=== PATIENT | female | born 1935 | race Caucasian/White ===

== ENCOUNTER 2016-12-11 21:54 | Inpatient (IN) | payer OTHER ==
--- NOTE | ~2016-12-11 | IDS ---
Interim Discharge Summary [facility] [address] [place]. [address] NAME: BERTHA HAND : 37 STATUS : ADM IN [facility]#: [id number] AGE: 81 ADM/REG DATE : 12/11/16 MR#: [id number] REPORT SERV DATE: 12/17/16 DICTATED BY: CHICHI VAZQUEZ DATE: 12/17/16 REPORT STATUS : Draft TRANSCRIBED BY: MODL DATE: 12/17/16 ADMISSION DATE: 12/11/2016 DISCHARGE DATE: CURRENT HOSPITAL DIAGNOSES: 1. Significant hemoptysis with respiratory insufficiency. 2. Chronic obstructive pulmonary disease. 3. Hypertension. 4. Chronic kidney disease. 5. Hypothyroidism. CONSULTATIONS: Pulmonary Critical Care. PROCEDURES: 1. Intubation. 2. CT scan of the chest done on 12/11/2016, showing opacification of the left lower lobe bronchi, concerning for bronchial malignancy, recommend bronchoscopy in consultation with Interventional Pulmonology, debris within the right mainstem bronchus likely hemorrhagic. 3. Repeat CT of the chest on 12/17/2016, showing bibasilar consolidation, there is a minimal infiltrate in both upper lobes and lingula consistent with pneumonia, bilateral pleural fluid left greater than right. Previously reported opacity in the left lower lobe bronchi have cleared, pacemaker and minimal mediastinal lymph node prominence, stable and nonspecific. 4. Thoracic aortogram on 12/12/2016. 5. Echocardiogram done on 12/12/2016, showing normal LV systolic function, EF 60% to 65%, normal right ventricular chamber size, and systolic function. No significant valvular regurgitation or stenosis. CURRENT PHYSICAL FINDINGS AND HISTORY OF PRESENT ILLNESS: please see dictated H and P by Dr. Justice. In brief, the patient is an 81-year-old female, who had a bout of bronchitis several weeks prior to presentation, presented with acute hemoptysis and respiratory distress. Vital signs at time of admission, BP was 175/77, temperature was 97.8. No fever has been documented here. LABORATORY DATA: Initial lab work showed a creatinine of 1.81, which was slightly higher than her baseline of approximately 1.4, most recent creatinine is on 12/16/2016 at 1.61. Initial troponin was negative. Initial white count was 6.7. She did get as high as 19.5 on 12/13/2016, it is been sequentially decreasing. Presenting hemoglobin was 12.0, last hemoglobin was on 12/15/2016 and 12/16/2016 were 8.5 and 8.4. Strep was negative. Legionella was negative. Urinalysis was negative. Cultures thus far are negative. HOSPITAL COURSE: The patient was initially admitted to the floor. She was accepted as transfer from [facility] for bronchoscopy in the morning with Dr. Sanders. Shortly after admission, she became hypoxic, was intubated, and had to be transferred to the ICU. She was started on cefepime and underwent interventional procedures as listed above. She was Interim Discharge Summary [id number] [place]. [address] NAME: BERTHA HAND : 37 STATUS : ADM IN [facility]#: [id number] AGE: 81 ADM/REG DATE : 12/11/16 MR#: [id number] REPORT SERV DATE: 12/17/16 DICTATED BY: CHICHI VAZQUEZ DATE: 12/17/16 REPORT STATUS : Draft TRANSCRIBED BY: MODL DATE: 12/17/16 stabilized and was able to transfer to the floor on 12/14/2016, I saw her on 12/15/2016, she was titrating off her O2. She was having scant hemoptysis. Her breathing and her O2 requirements were stable. She continued on her antibiotics. On 12/16/2016, her Lasix and Tenormin were reinstitute, however, Tenormin was at a lower dose given her relative hypotension. Repeat CT scan was ordered and the results are as noted above. Her West was discontinued and she was able to completely stop her oxygen, ambulate in the room without assistance. She was still concerned about the possible etiology, and recurrence of her hemoptysis, any further evaluation which would need to be done, and whether she would need to discharge on antibiotics or not. Therefore, Pulmonary was consulted and will see her in the morning for further recommendations. She is currently clinically stable. TLF/MODL Chichi Vazquez M.D. / [id number] CC: Bj Adams,VIDHYA Mancia
--- NOTE | ~2016-12-11 | OP ---
Record Of Operation [facility] [address] [place]. [address] NAME: BERTHA HAND : 37 STATUS : ADM IN [facility]#: [id number] AGE: 81 ADM/REG DATE : 12/11/16 MR#: [id number] REPORT SERV DATE: 12/12/16 DICTATED BY: GERARDO FRIEND IV DATE: 12/12/16 REPORT STATUS : Draft TRANSCRIBED BY: RACQUEL DATE: 12/12/16 DATE OF PROCEDURE: 12/12/2016 LARYNGOSCOPIC INTUBATION NOTE PREOPERATIVE DIAGNOSIS: Hypoxemic respiratory failure despite non-rebreather. POSTOPERATIVE DIAGNOSIS: Hypoxemic respiratory failure despite non-rebreather. PROCEDURE: Laryngoscopic intubation with ventilator setup and placement of an orogastric tube. INDICATIONS: Acute hypoxemic respiratory failure with white-out of the left hemithorax. CONTRAINDICATIONS: None. CONSENT: I did discuss whether the patient wished to proceed with an intubation, which she agreed. No formal consent was obtained as a lifesaving procedure, and the patient is a full code. PREOPERATIVE LABS: The patient's INR is 1, PTT is 24.9, platelet count was 171,000. BONE CHAR KILN TENDER: Gerardo Friend M.D. METHOD: The patient was brought to the head of the bed. She was given 20 mg of etomidate IV times single dose. During this period of time, she was Ambu bag ventilated. Oxygen saturations remained in the high 80% range. Using a curved laryngoscopic blade, the vocal cords were easily visualized. A #7.5 Endotracheal tube was advanced through the vocal cords without difficulty. There was appropriate color change on the CO2 indicator and the bilateral breath sounds were better on the right. The tube was secured to 22 cm. There was good positioning on the chest x-ray with continued infiltrate throughout the left hemithorax. There was no blood loss. The patient tolerated the procedure well. Ventilator settings were CMV mode, tidal volume of 500 mL, rate of 12, FiO2 of 100%, and PEEP of 5. Orogastric tube was placed once the tube was secured. ANTIONETTE/RACQUEL Gerardo Friend IV, M.D. / [id number] CC: Rajan Vaughn M.D. Record Of Operation [address] [address] NAME: BERTHA HAND : 37 STATUS : ADM IN PAT#: [id number] AGE: 81 ADM/REG DATE : 12/11/16 MR#: [id number] REPORT SERV DATE: 12/12/16 DICTATED BY: GERARDO FRIEND IV DATE: 12/12/16 REPORT STATUS : Draft TRANSCRIBED BY: MODL DATE: 12/12/16 VIDHYA TEAGUE
--- NOTE | ~2016-12-11 | CN ---
Consultation Report [facility] [address] [place]. [address] NAME: BERTHA MEAD : 37 STATUS : ADM IN [facility]#: [id number] AGE: 81 ADM/REG DATE : 12/11/16 MR#: [id number] REPORT SERV DATE: 12/12/16 DICTATED BY: GERARDO FRIEND IV DATE: 12/12/16 REPORT STATUS : Draft TRANSCRIBED BY: RACQUEL DATE: 12/12/16 CRITICAL CARE CONSULT CRITICAL CARE CONSULT WITH CRITICAL CARE TIME 85 MINUTES. NOT TO INCLUDE TIME FOR INTUBATION, BRONCHOSCOPY, AND RIGHT FEMORAL LINE PLACEMENT. DATE OF CONSULTATION: HISTORY OF PRESENT ILLNESS: History was obtained from the patient and the records. Ms Mead is an 81-year-old female with a history of coronary artery disease, tachy-matt syndrome with a pacemaker, paroxysmal atrial fibrillation, severe COPD, chronic kidney disease, past lower GI bleed, who was admitted with a large volume hemoptysis with white-out of the left hemithorax with hypoxemic respiratory failure requiring intubation. The patient presented to [facility] after coughing up some flecks of blood. The morning of 12/11/2016, she had episodes of coughing up slava blood. She was seen by her outpatient banjo repairer who sent her to the emergency room. She reports coughing up estimates of up to 100 to 300 mL of slava blood in the emergency room. She became more hypoxemic and was transferred to our facility to the Hospitalist Service for bronchoscopy today. The patient initially required 3 L then 5 L, and then had been transitioned up to a non-rebreather with oxygen saturations in the 80% range. A rapid response was called. The patient was moved to the Intensive Care Unit. I saw the patient, she was on non-rebreather, in no distress; however, with oxygen saturations in the low 80s. Because of the hemoptysis, she was not a candidate for BiPAP and underwent intubation without event. The patient carries a diagnosis of severe COPD with an FEV1 of 0.93 L or 45% of predicted. She had a chest CT scan prior to transfer, which demonstrated debris in the left main stem with what appeared to be almost a mxmhsm-vy-fmpdc densities in the left lower lobe with no other obvious bronchiectasis though with bronchial wall thickening. The patient has some small lymphadenopathy. She is on albuterol as an outpatient. She tells me she is not on supplemental oxygen. She has never had a similar episode. She is not on blood thinners. PULMONARY HISTORY: Remarkable for no history of childhood asthma. She has this severe COPD as noted. She has had pneumonia in the past. She has more than 100-pack year smoking history having quit by her report a year and a half ago. She did not ask about immunization status. The patient denies a history of recent respiratory infection to include purulent sputum production, fevers, chills, or sweats. PAST MEDICAL HISTORY: 1. Coronary artery disease. 2. Tachy-matt syndrome. 3. Paroxysmal atrial fibrillation. 4. Severe COPD. 5. Chronic kidney disease. 6. Past lower GI bleed. PAST SURGICAL HISTORY: Consultation Report [address] [place]. [address] NAME: BERTHA MEAD : 37 STATUS : ADM IN [facility]#: [id number] AGE: 81 ADM/REG DATE : 12/11/16 MR#: [id number] REPORT SERV DATE: 12/12/16 DICTATED BY: GERARDO FRIEND IV DATE: 12/12/16 REPORT STATUS : Draft TRANSCRIBED BY: RACQUEL DATE: 12/12/16 1. Laparoscopic cholecystectomy. 2. Bilateral knee replacements. 3. Pacemaker placement. 4. By her report partial thyroidectomy. ALLERGIES: SHE REPORTS PENICILLIN, SULFA, CODEINE, AND LATEX WITH RASH INTOLERANCE TO ALL OF THE ABOVE. MEDICATIONS: At time of transfer; Cordarone 200 mg daily, DuoNeb every 4 hours, Klonopin 1 mg at bedtime, Lasix 20 mg daily, Lipitor 20 mg at bedtime, potassium 10 mEq daily, Protonix 40 mg daily, Rocaltrol 0.25 mg three times a week, Synthroid 75 mcg daily, Tenormin 25 mg twice a day, and vitamin D. SOCIAL HISTORY: Remarkable for the previous tobacco use as above. She denies alcohol or illicit drug use. FAMILY HISTORY: Remarkable for coronary artery disease in both parents, of COPD. REVIEW OF SYSTEMS: A 14-systems reviewed. Pertinent positives are as noted above. PHYSICAL EXAMINATION: GENERAL: This was an elderly female, in no distress though hypoxemic on a non- rebreather. VITAL SIGNS: Temperature is 97.5, pulse is 65, respiratory rate is 15, and saturations are 84% on non-rebreather. Blood pressure is 135/62. HEENT: The patient is normocephalic, atraumatic. Extraocular movements are intact. Pupils react to light. Sclerae and conjunctivae are normal. She had upper and lower dentures with a Mallampati 3 airway and narrowing of the posterior pharyngeal space. She had decreased breath sounds throughout the left hemithorax. There were some scattered rhonchi and wheezes. There is a prolonged expiratory phase. There were some minimal inspiratory crackles at the right base. CHEST: She had a pacemaker in the left anterior chest. CARDIOVASCULAR: Jugular venous pulsations are difficult to elicit. She has 1+ carotid upstrokes. No obvious bruit. She has a distant regular S1, S2 with no clear murmur or S3. Peripheral pulses are diminished. ABDOMEN: Surgical scars are noted. Protuberant, soft. There are hypoactive bowel sounds. There is no palpable hepatosplenomegaly or mass. EXTREMITIES: Demonstrate no cyanosis, clubbing, edema, or palpable cords. She has scars over the both knees. NEUROLOGIC: The patient follows commands. Moves all extremities and strength is 5-/5. LABORATORY DATA: Review of the chest x-ray demonstrates progressive infiltrate and consolidation throughout the left hemithorax. A CT scan demonstrated debris in the left mainstem bronchus with what appeared to be yhqmni-ui-almef densities in both lower lung Consultation Report [address] [place]. [address] NAME: BERTHA MEAD : 37 STATUS : ADM IN [facility]#: [id number] AGE: 81 ADM/REG DATE : 12/11/16 MR#: [id number] REPORT SERV DATE: 12/12/16 DICTATED BY: GERARDO FRIEND IV DATE: 12/12/16 REPORT STATUS : Draft TRANSCRIBED BY: RACQUEL DATE: 12/12/16 rubalcava with thickened bronchial mcdonald. There was no obvious mass noted. There were some tree-in-bud infiltrates throughout mainly the right upper lobe. They were central lobular emphysematous changes. Chemistries: Initial blood gas was pH of 7.36, pCO2 of 51, pO2 of 59. Sodium 146, potassium 3.7, chloride 109, bicarb 30, BUN 27, creatinine 1.81, glucose of 103, magnesium is 2.3, and troponin was 0.02. CBC: Hemoglobin 12.1, hematocrit 39.4, platelet count was 171,000, and white blood cell count 10.3, with an INR of 1, and PTT of 24.9. ASSESSMENT AND PLAN: 1. Respiratory. The patient had underwent intubation with improvement of her oxygen saturations now in the low 90% range. She underwent bronchoscopy demonstrating an organized clot completely obstructing the left mainstem bronchus. Because of the inability to perform procedures with the disposable scope the clot was not manipulated. The patient will be placed on Dulera 5 puffs twice a day and DuoNeb. She will be given Solu-Medrol today 40 mg twice a day, with prednisone starting tomorrow. The patient will undergo bronchoscopy with Dr. Sanders today. 2. Infectious disease. BAL was sent for cultures with the tree-in-bud and the possibly bronchiectasis in the left lower lobe. She will be given cefepime, adjusted for her kidney function. Procalcitonin level will be added to blood and lab. We will give urine antigens for pneumococcus as well as Legionella. We would hold atypical coverage with a prolonged QT on current EKG to include both Levaquin and azithromycin. 3. Cardiovascular. Levophed will be given to maintain mean arterial pressure since she dropped her pressure immediately after the intubation. Troponin was initially negative; however, we will add to the current blood in the labs. Echocardiogram will be obtained. We will hold the Tenormin. 4. Renal. Creatinine is elevated. The patient is likely dry and not eating well for the last two days. Fluid boluses have been given. Mag and phosphate level will be added to blood and lab. 5. Gastrointestinal. Orogastric tube was placed to low intermittent suction. Tube feeds will be started after the bronch. 6. Endocrinologic. Cortisol level will be obtained with the hypotension, thyroid functions will be added. Synthroid will be continued. I will give level 2 insulin sliding scale. 7. Neurologic. Propofol for sedation with fentanyl if needed. Thiamine will be given 200 mg IV daily. 8. Hematologic. Pneumatic compression stockings for deep vein thrombosis prophylaxis. CBC will be obtained. Hemoglobin and hematocrit will be checked q.8 hours, typed and screen for two units. Thank you for consulting us. The patient be transitioned to the Critical Care Service while in the Intensive Care Unit. The daughter will be updated. Critical care time seen is 85 minutes not including the procedures. Consultation Report [place] [address] [place]. [address] NAME: BERTHA MEAD : 37 STATUS : ADM IN [facility]#: [id number] AGE: 81 ADM/REG DATE : 12/11/16 MR#: [id number] REPORT SERV DATE: 12/12/16 DICTATED BY: GERARDO FRIEND IV DATE: 12/12/16 REPORT STATUS : Draft TRANSCRIBED BY: RACQUEL DATE: 12/12/16 ANTIONETTE/RACQUEL Gerardo Friend IV, M.D. / [id number] CC: Bj Gibson
--- NOTE | ~2016-12-11 | HP ---
History And Physical [place] [id number] [facility] [place]. [address] NAME: BERTHA MEAD : 37 STATUS : ADM IN [facility]#: [id number] AGE: 81 ADM/REG DATE : 12/11/16 MR#: [id number] REPORT SERV DATE: 12/12/16 DICTATED BY: COREEN CHARLES DATE: 12/11/16 REPORT STATUS : Draft TRANSCRIBED BY: MODLeyla DATE: 12/11/16 DATE OF ADMISSION: 12/11/2016 POINT OF ENTRY: Transfer from [facility] Emergency Department. PRIMARY WORKERS' COMPENSATION COMMISSIONER: Dr. Reyes. Does not have a meter repair shop supervisor. CHIEF COMPLAINT: Shortness of breath and hemoptysis. HISTORY OF PRESENT ILLNESS: Ms. Mead is an 81-year-old female with a history of COPD, not on any home oxygen; as well as hypertension; chronic kidney disease stage 3; as well as hypothyroidism, who presents to the emergency department today with reports of acute onset of hemoptysis. The patient states that she was in her usual state of health and doing well up until about Saturday evening when she started to have cough with sputum production that at that time was blood tinged. Her daughter came home from work a few hours later, who is a data storage specialist and backpackers manager, and at that time, was doing fine. The patient states that around midnight Saturday night, her hemoptysis started to become larger in volume and started to become bright red blood in nature and approximately a teaspoon to a tablespoon at a time. She also describes some sensation of shortness of breath as well. They saw Dr. Reyes in clinic early this morning and she told him about her hemoptysis, and he recommended that she go to the emergency department for further evaluation and management. Initial evaluation at [facility] is notable for a CT scan of the chest that shows opacification of the left lower lobe bronchus concerning for possible bronchial malignancy as well as debris in the right mainstem bronchus concerning for hemorrhage. The patient's vital signs and labs were all unremarkable except for some mild hypoxemia requiring 2 to 3 L by nasal cannula. She was seen in consultation by Dr. Cosby of Critical Care, who recommended transfer to the [facility] for bronchoscopy by Dr. Sanders in the morning. Upon arrival from [facility], the patient was noted to be very hypertensive with systolics greater than 200. She is now requiring 5 L by nasal cannula. Repeat CBC showed no significant change in her blood counts. Repeat chest x-ray also was unremarkable. She was subsequently admitted to the Hospitalist Service for further evaluation and management. The patient does state a recent episode of bronchitis about two to three weeks ago, was placed on doxycycline and prednisone which she completed. Denies any other recent troubles with fevers, night sweats, chills, chest pain, abdominal pain, nausea, vomiting, diarrhea, constipation, dysuria, melena, hematochezia, or hemoptysis. COMPREHENSIVE REVIEW OF SYSTEMS: Otherwise negative unless listed in history of present History And Physical [address] [address] NAME: BERTHA MEAD : 37 STATUS : ADM IN PAT#: [id number] AGE: 81 ADM/REG DATE : 12/11/16 MR#: [id number] REPORT SERV DATE: 12/12/16 DICTATED BY: COREEN CHARLES DATE: 12/11/16 REPORT STATUS : Draft TRANSCRIBED BY: RACQUEL DATE: 12/11/16 illness. PREVIOUS MEDICAL HISTORY: 1. COPD, not on home oxygen. 2. Hypertension. 3. Chronic kidney disease stage 3, baseline creatinine 1.5 to 2.0. 4. Gastroesophageal reflux disease. 5. Sick sinus syndrome and atrial fibrillation with pacemaker insertion. 6. History of coronary artery disease with prior HI. 7. Hypothyroidism. 8. History of lower GI bleed while on Coumadin, aspirin, and Plavix. SURGICAL HISTORY: 1. Cholecystectomy. 2. Bilateral total knee. 3. Pacemaker insertion. 4. Thyroidectomy. ALLERGIES: ARE TO PENICILLIN, SULFA DRUGS, CODEINE, ADHESIVE TAPE, LATEX, AND PERFUME. HOME MEDICATIONS: 1. Albuterol one puff inhalation q.4 hours p.r.n. 2. Albuterol one nebulization inhalation daily. 3. Amiodarone 200 mg daily. 4. Aspirin 81 mg daily. 5. Tenormin 25 mg b.i.d. 6. Atorvastatin 20 mg q.h.s. 7. Calcitriol 0.25 mcg Saturday, Saturday, and Saturday. 8. Vitamin D3, 1000 units q.h.s. 9. Klonopin 1 mg q.h.s. 10.Flonase one spray nasal daily. 11.Lasix 20 mg daily. 12.Levothyroxine 75 mcg daily. 13.Protonix 40 mg daily. 14.Potassium chloride 10 mEq daily. SOCIAL HISTORY: Denies any tobacco, alcohol, or illicits. Is a former smoker, quit about a year and a half ago, has greater than [id number] smoking history. FAMILY MEDICAL HISTORY: Mother with COPD, father with COPD and coronary artery disease. She is an only child. LABS AND IMAGIN. Initial CBC shows a white count 6.7, hemoglobin 12.0, hematocrit 39.9, platelets 189, INR 1.1. On recheck, white count is now 10.3, hemoglobin 12.1, hematocrit 39.4, platelets 171. 2. Sodium is 146, potassium 3.7, chloride 109, carbon dioxide 30, BUN 27, creatinine 1.81, History And Physical [address] [address] NAME: BERTHA MEAD : 37 STATUS : ADM IN [facility]#: [id number] AGE: 81 ADM/REG DATE : 12/11/16 MR#: [id number] REPORT SERV DATE: 12/12/16 DICTATED BY: COREEN CHARLES DATE: 12/11/16 REPORT STATUS : Draft TRANSCRIBED BY: RACQUEL DATE: 12/11/16 glucose is 103, calcium is 8.6, magnesium 2.3. 3. Troponin less than 0.2. 4. ABG; pH of 7.36, pCO2 is 51, PO2 is 59, bicarb is 28, saturating 87% on 3 L by nasal cannula. 5. Initial chest x-ray at [facility] shows no acute cardiopulmonary abnormality. On repeat chest x-ray here at [facility] per my review shows no significant changes. Does show pacemaker in place with some mild COPD-type changes with hyperinflation and flattened diaphragms. 6. CT scan of the chest shows opacification of the left lower lobe bronchus concerning for possible bronchial malignancy as well as debris in the right mainstem bronchus concerning for hemorrhage. PHYSICAL EXAMINATION: VITAL SIGNS: Blood pressure initially 218/95, pulse 63, respirations 24, saturating 94% on 5 L by nasal cannula, temperature is 98.6. GENERAL: The patient is awake, alert, in no acute distress, resting comfortably. She is a chronically ill-appearing elderly female. Daughter is at bedside. HEENT: Atraumatic and normocephalic. Moist mucous membranes. Pupils are equal, round, reactive to light and accommodation. Extraocular eye movements are intact. No scleral icterus. NECK: No jugular venous distention. No carotid bruits. CARDIAC: Regular rate and rhythm. No murmurs or gallops. Normal S1, normal S2. LUNGS: Is on 5 L by nasal cannula. Is somewhat tachypneic and feeling short of breath, but has fair to good air movement with no appreciable wheezes, rhonchi, or crackles. ABDOMEN: Soft, nontender, nondistended. Good bowel sounds. No rebound, guarding, or rigidity. EXTREMITIES: Warm and perfused. No cyanosis, clubbing, or edema. SKIN: Warm and dry. PSYCH: Affect is slightly anxious. NEURO: Alert and oriented x3. Cranial nerves 2 through 12 grossly intact. Speech is normal. Gait not assessed. ASSESSMENT: Ms. Mead is an 81-year-old female with history of chronic obstructive pulmonary disease and significant previous tobacco use, who presents with acute onset of slava hemoptysis. PROBLEM LIST: 1. Slava hemoptysis. 2. Concern for possible bronchial malignancy. 3. Acute hypoxic respiratory failure. 4. COPD. 5. Chronic kidney disease stage 3. 6. Hypertension. PLAN: 1. Slava hemoptysis. The patient currently has stable vital signs as well as labs with stable CBC. I think she is stable for floor until Dr. Sanders can see her in the History And Physical [address] [address] NAME: BERTHA MEAD : 37 STATUS : ADM IN [facility]#: [id number] AGE: 81 ADM/REG DATE : 12/11/16 MR#: [id number] REPORT SERV DATE: 12/12/16 DICTATED BY: COREEN CHARLES DATE: 12/11/16 REPORT STATUS : Draft TRANSCRIBED BY: MODLeyla DATE: 12/11/16 morning for diagnostic as well as therapeutic bronchoscopy. Continue nothing by mouth status. We will repeat a CBC in the morning. 2. Acute hypoxic respiratory failure. I do not appreciate any evidence of acute COPD exacerbation at this time. I suspect this is likely all due to her hemoptysis as well as the opacified left lower lobe bronchus. We will continue to monitor. Treat with inhaled bronchodilators. 3. Hypertension. The patient's blood pressure was massively elevated here upon transfer. I suspect some of this is due to anxiety as well as not taking her home atenolol. She did receive some atenolol at the emergency department at [facility] without much improvement. Place her on IV hydralazine p.r.n. 4. Chronic kidney disease stage 3. The patient's reported baseline creatinine is approximately 1.4 to 1.6. This is slightly above her recent baseline. We will continue to monitor. 5. DVT prophylaxis. TEDs and SCDs given hemoptysis. CODE STATUS: The patient wished to be full code. JCB/MODL Coreen Charles MD / [id number] CC: Bj Gibson
--- NOTE | ~2016-12-11 | OP ---
Record Of Operation [facility] [address] [place]. [address] NAME: BERTHA HAND : 37 STATUS : ADM IN [facility]#: [id number] AGE: 81 ADM/REG DATE : 12/11/16 MR#: [id number] REPORT SERV DATE: 12/12/16 DICTATED BY: GERARDO FRIEND IV DATE: 12/12/16 REPORT STATUS : Draft TRANSCRIBED BY: RACQUEL DATE: 12/12/16 DATE OF PROCEDURE: 12/12/2016 PREOPERATIVE DIAGNOSIS: Persistent hypotension with inadequate IV access in a critically ill patient. POSTOPERATIVE DIAGNOSIS: Persistent hypotension with inadequate IV access in a critically ill patient. PROCEDURE: Placement of a right femoral central line. INDICATIONS: Critically ill patient with inadequate IV access. CONTRAINDICATIONS: None. CONSENT: The risks, benefits, and alternative treatments were discussed with the patient's daughter, who is acting as a surrogate decision maker. Possible complications were reviewed to include bleeding, infection, ischemia to the right leg and even potentially . The daughter agreed to the procedure with consent signed, and witnessed on the front of the chart. PAPER MACHINE TENDER: Gerardo Friend M.D. LABS: INR is 1.1, PTT is 24.9, and the platelet count was 171,000. METHOD: The patient was in supine position. Her right leg was frog-legged to better expose the right groin. This was prepped with the chlorhexidine. Using the ultrasound as guidance, the femoral artery and vein were easily localized. The area was prepped with chlorhexidine and sterilely draped. Again using the ultrasound guidance sterilely, a 3 mL of 1% lidocaine was used to anesthetize the skin. A small skin incision was made and the introducer needle was advanced under ultrasound guidance into the right femoral vein. On first pass, there was good blood flow. Guidewire was advanced without difficulty. Using modified Seldinger technique, the triple-lumen catheter was advanced without difficulty and secured with sutures. There was good blood flow from all three ports. Wasted blood was 10 mL. It will now be used for resuscitation. The patient tolerated the procedure well. ANTIONETTE/RACQUEL Gerardo Friend IV, M.D. / [id number] CC: Record Of [address] [place]. [address] NAME: BERTHA HAND : 37 STATUS : ADM IN PAT#: [id number] AGE: 81 ADM/REG DATE : 12/11/16 MR#: [id number] REPORT SERV DATE: 12/12/16 DICTATED BY: GERARDO FRIEND IV DATE: 12/12/16 REPORT STATUS : Draft TRANSCRIBED BY: MODL DATE: 12/12/16 Bj Gibson
--- NOTE | ~2016-12-11 | OP ---
Record Of Operation [facility] [address] [place]. [address] NAME: BERTHA HAND : 37 STATUS : ADM IN PAT#: [id number] AGE: 81 ADM/REG DATE : 12/11/16 MR#: [id number] REPORT SERV DATE: 12/12/16 DICTATED BY: GERARDO FRIEND IV DATE: 12/12/16 REPORT STATUS : Draft TRANSCRIBED BY: RACQUEL DATE: 12/12/16 DATE OF PROCEDURE: 12/12/2016 BRONCHOSCOPY PROCEDURE NOTE PREOPERATIVE DIAGNOSIS: Progressive consolidation of the left hemithorax with hypoxemic respiratory failure. POSTOPERATIVE DIAGNOSIS: Organized clot completely obstructing the left mainstem bronchus with blood staining throughout the right lung that was removed. There was no source of bleeding in the right lung with the source seeming from the left lung. No clot manipulation was performed because of inability to perform therapeutic bronchoscopy. PROCEDURE: Bronchoscopy, diagnostic, reason for progressive whiteout of the left lung. CONTRAINDICATIONS: Relative contraindications, the patient on the ventilator. CONSENT: The risks, benefits, and alternative evaluations were discussed with the patient's daughter who is acting as a surrogate decision maker. Possible complications reviewed to include worsening of oxygenation, abnormal heart rhythms, air leak around the lung, and potentially . The daughter agreed to proceed with the consent signed and witnessed on the from chart. PREOPERATIVE LABS: The patient's platelet count was 171,000. INR is 1.1, PTT is 24.9. METHOD: The patient was placed on 100% FiO2. The bronchoscope was advanced through the endotracheal tube without difficulty. The tube sat 3.5 cm proximal to the guadalupe. There was blood staining throughout the airways. This was removed with a 40 mL of lavage. There was bronchial pits and ectatic airways on the right. All areas were patent out beyond the fourth generation bronchi with normal anatomy. There was no endobronchial lesions or evidence for active bleeding. On the left, there was an organized clot completely obstructing the left mainstem bronchus right up to the guadalupe. Because we had a diagnostic scope only and did not have the abilities to perform procedures, no manipulation was performed of the clot. This will be performed later on this morning. There is no obvious mass in the airway mucosa. Normal around the clot. The patient tolerated the procedure well with a BAL sent of the left main stem for cultures. There was no blood loss from the procedure. ANTIONETTE/RACQUEL Gerardo Friend IV, M.D. / [id number] Record Of Operation [address] [place]. [address] NAME: BERTHA HAND LANDON : 37 STATUS : ADM IN PAT#: [id number] AGE: 81 ADM/REG DATE : 12/11/16 MR#: [id number] REPORT SERV DATE: 12/12/16 DICTATED BY: GERARDO FRIEND IV DATE: 12/12/16 REPORT STATUS : Draft TRANSCRIBED BY: RACQUEL DATE: 12/12/16 CC: Bj Gibson PAUL E
--- NOTE | ~2016-12-11 | DS ---
Discharge Summary [facility] [address] [facility] [place]. [address] NAME: BERTHA HAND : 37 STATUS : DIS IN PAT#: [id number] AGE: 81 ADM/REG DATE : 12/11/16 MR#: [id number] REPORT SERV DATE: 12/19/16 DICTATED BY: GORDO ROBERTS DATE: 12/19/16 REPORT STATUS : Draft TRANSCRIBED BY: MODL DATE: 12/19/16 ADMISSION DATE: 12/11/2016 DISCHARGE DATE: 12/19/2016 DISCHARGE DIAGNOSES: 1. Hemoptysis with respiratory insufficiency. 2. Chronic pulmonary obstructive disease. 3. Hypertension. 4. Chronic kidney disease. 5. Hypothyroidism. 6. Sick sinus syndrome and atrial fibrillation with a pacemaker insertion. 7. History of coronary artery disease with prior myocardial infarction. 8. History of lower gastrointestinal bleed while on Coumadin, aspirin, and Plavix. Currently, off all anticoagulation. 9. Gastroesophageal reflux disease. CONSULTANTS DURING THIS HOSPITALIZATION: Dr. Elias Friend of Intensive Care and Critical Care with Dr. Pérez. INVASIVE PROCEDURES DONE DURING THIS HOSPITALIZATION: Intubation and mechanical ventilation. Bronchoscopy notable for an organized clot completely obstructing the left mainstem bronchus with blood staining through the right lung that was removed. There was no source of bleeding in the right lung with the source seeming from the left lung. No clot manipulation was performed because of inability to perform therapeutic bronchoscopy. Placement of a femoral central line. For lab data, please refer to interim summary dictated by Dr. Cruz. BRIEF HISTORY OF PRESENT ILLNESS: The patient is an 81-year-old female who presented with history of several weeks of bronchitis prior to presentation and then had acute hemoptysis and respiratory distress, so she was admitted. For detailed history and physical exam, please see note dictated by Dr. Nile Justice on 12/11/2016. HOSPITAL COURSE: After being admitted to the hospital, this patient was cared for by Dr. Cruz and the Critical Care Team. Please refer to interim summary dictated by Dr. Cruz on 12/17/2016. I took over this patient's care on 12/18/2016. This patient was doing well. She was off oxygen. Pulmonary had signed off her care and recommended that she continue on her Anoro. I did overnight observe her for her kidney function; however, her kidney function is slightly worse than yesterday at about 1.9, but she claims that she has a healthcare network pricing consultant, Dr. Shakira Guerrier, who sees her on a regular basis for her kidney problems and currently she is on Lasix. So, at this time, we have decided that we will discontinue her Lasix and let her followup with Dr. Guerrier in about one week for repeat BMP. This patient remained stable, otherwise. I have discussed her care with Dr. Pérez yesterday and Dr. Pérez will see the patient in followup and recommend repeat CT scan in two months. This has been arranged through his office prior to patient's discharge. Discharge Summary [address] [place]. [address] NAME: BERTHA HAND : 37 STATUS : DIS IN PAT#: [id number] AGE: 81 ADM/REG DATE : 12/11/16 MR#: [id number] REPORT SERV DATE: 12/19/16 DICTATED BY: GORDO ROBERTS DATE: 12/19/16 REPORT STATUS : Draft TRANSCRIBED BY: RACQUEL DATE: 12/19/16 DISCHARGE DISPOSITION: Home. DISCHARGE ACTIVITY: As tolerated. DISCHARGE DIET: Low-sodium diet. DISCHARGE MEDICATIONS: Atenolol 25 mg p.o. twice daily; Lipitor 20 mg once at bedtime; amiodarone 200 mg once daily; Rocaltrol 0.25 mg Saturday, Saturday, and Saturday; vitamin D 1000 units p.o. once at bedtime; levothyroxine 75 mcg once daily; Protonix 40 mg once daily; Klonopin 1 mg once at bedtime; Proventil one puff every four hours p.r.n.; potassium 10 mEq once daily; aspirin 81 mg once daily; Flonase one spray each nostril once daily for congestion; albuterol neb once daily; Anoro Ellipta one puff once daily. DISCHARGE FOLLOWUP: With Dr. Pérez as scheduled, with Dr. Shakira Guerrier is to be scheduled, with Samir Manjarrez in one week. More than 30 minutes spent planning this patient's discharge, reconciling medications, writing prescriptions, discussing hospital care, and follow up with the patient and documenting this discharge. JOSEPH/RACQUEL Gordo Roberts M.D. / [id number] CC: Bj Eastman PAUL E Hisham F. Qutob, MD Lindsay C Crawford, M.D.
[~2016-12-11 21:54] MED LIST: ADVAIR INH; ALBUTEROL0.083 % INH; ASAB PO; ATEN100 PO; ATEN25 PO; ATEN50 PO; ATROVENTUD INH; C5 PO; CORDARONE PO; FLONASE NAS; HALF81 PO; IRON PO; IRON160 MG PO; KLONO1 PO; KLOR-CON M1010 MEQ PO; L20 PO; L40 PO; LEVOTHYROXIN137 MCG PO; LEVOTHYROXIN75 MCG PO; LIPITOR20 PO; MAX25 PO; NASACORTAQ NAS; PR25R PR; PRILO PO; PROTONIX PO; PROVHFA INH; ROCALTROL0.25 MCG PO; ULTRAM50 PO; VITAMIN D31000 UNIT PO
[2016-12-11 23:02] LABS: BASOPHILS 0.2 %; BASOPHILS ABSOLUTE 0.02 10/3/uL (0.0-0.16); HEMATOCRIT 39.4 % (36.0-48.0); HEMOGLOBIN 12.1 g/dL (12.0-16.0); IMMATURE GRANULOCYTES 0.2 %; IMMATURE GRANULOCYTES ABSOLUTE 0.02 10/3/uL (0.0-0.11); LYMPHOCYTES 8.6 %; LYMPHOCYTES ABSOLUTE 0.88 10/3/uL (0.67-4.30); MEAN CORPUS HGB CONC 30.7 g/dL (32.0-36.0); MEAN CORPUSCULAR HEMOGLOB 28.9 pg (26.0-34.0); MEAN PLATELET VOLUME 10.8 fL (9.2-13.0); MONOCYTES ABSOLUTE 0.62 10/3/uL (0.21-1.20); NEUTROPHILS ABSOLUTE 8.64 10/3/uL (2.02-8.40); PLATELET COUNT 171 10/3/uL (150-400); RBC DISTRIBUTION WIDTH 15.2 % (12.0-16.0); RED CELL COUNT 4.19 10/6/uL (4.0-5.6)
[2016-12-11 23:06] LABS: MANUAL DIFF NO %; WHITE BLOOD CELLS 10.3 10/3/uL (4.5-10.5)
[2016-12-12 05:28] LABS: ALLENS TEST Pos; BE (BASE EXCESS) -0.7 MEQ/L (0 +/- 2.5); CARBOXYHEMOGLOBIN 0.3 % (0-3); HCO3 (ACTUAL BICARBONATE) 23.1 MEQ/L (23-27); HEMOBLOGIN CONTENT 11.7 G/DL (12-16); INSTRUMENT SERIAL # 35151; METHEMOGLOBIN 0.6 % (0-3); MODE CMV; OPERATOR ID 13415; PCO2 (CO2 TENSION) 35 MMHG (35-45); PO2 (O2 TENSION) 64 MMHG (79-93); SAMPLE Arterial; TIDAL VOLUME 500 ML; pH 7.44 (7.37-7.43)
[2016-12-12 05:57] LABS: BASOPHILS 0.2 %; BASOPHILS ABSOLUTE 0.03 10/3/uL (0.0-0.16); EOSINOPHILS 0.1 %; EOSINOPHILS ABSOLUTE 0.01 10/3/uL (0.0-0.53); HEMOGLOBIN 10.7 g/dL (12.0-16.0); IMMATURE GRANULOCYTES 0.3 %; IMMATURE GRANULOCYTES ABSOLUTE 0.05 10/3/uL (0.0-0.11); LYMPHOCYTES 4.7 %; LYMPHOCYTES ABSOLUTE 0.76 10/3/uL (0.67-4.30); MEAN CORPUS HGB CONC 30.9 g/dL (32.0-36.0); MEAN CORPUSCULAR HEMOGLOB 28.5 pg (26.0-34.0); MEAN CORPUSCULAR VOLUME 92.3 fL (80-100); MEAN PLATELET VOLUME 11.4 fL (9.2-13.0); MONOCYTES 4.6 %; MONOCYTES ABSOLUTE 0.75 10/3/uL (0.21-1.20); NEUTROPHILS 90.1 %; NEUTROPHILS ABSOLUTE 14.71 10/3/uL (2.02-8.40); RBC DISTRIBUTION WIDTH 15.2 % (12.0-16.0); RED CELL COUNT 3.75 10/6/uL (4.0-5.6)
[2016-12-12 05:59] LABS: HEMATOCRIT 34.6 % (36.0-48.0); MANUAL DIFF NO %; PLATELET COUNT 235 10/3/uL (150-400); WHITE BLOOD CELLS 16.3 10/3/uL (4.5-10.5)
[2016-12-12 06:10] LABS: BUN (BLOOD UREA NITROGEN) 25 MG/DL (6-23); CALCIUM, SERUM 8.3 MG/DL (8.5-10.4); CHLORIDE, SERUM 110 MMOL/L (96-112); CREATININE 1.49 MG/DL (0.55-1.02); GFR AFRICAN AMERICAN 38 ML/MIN (>=60); GFR NON AFRICAN AMERICAN 33 ML/MIN (>=60); PHOSPHORUS, SERUM 3.2 MG/DL (2.5-4.5); POTASSIUM, SERUM 3.9 MMOL/L (3.5-5.3); SODIUM, SERUM 147 MMOL/L (135-148)
[2016-12-12 06:11] LABS: CO2 (CARBON DIOXIDE) 25 MMOL/L (24-34); GLUCOSE, SERUM 138 MG/DL (60-99)
[2016-12-12 06:58] LABS: INTERNATIONAL NORMAL RATI 1.1 UNITS (-); PARTIAL THROMBO TIME 26.4 SEC (22.5-37.2); PROTIME (NOT ORD) 14.3 SEC (12.0-14.5)
[2016-12-12 07:15] LABS: A/G RATIO 0.8 (0.7-1.9); ALBUMIN 2.7 G/DL (3.5-5.0); ALKALINE PHOSPHATASE 53 U/L (45-117); GLOBULIN 3.4 G/DL (2.5-4.1); SGOT(AST) 21 U/L (5-40); SGPT(ALT) 17 U/L (5-65); TOTAL PROTEIN 6.1 G/DL (6.0-8.5); TROPONIN I <0.02 NG/ML (<0.05)
[2016-12-12 07:17] LABS: ASCORBIC ACID (UR NOT ORDER) NEG (NEG); BILIRUBIN, URINE NEGATIVE (NEG); KETONE, URINE TRACE MG/DL (NEG); LEUKOCYTE ESTERASE(NOT OR NEG (NEG); WBC (NOT ORDERED) (RFLEX) 3 (0-5)
[2016-12-12 09:42] LABS: PROCALCITONIN 0.22 ng/mL (<0.5)
[2016-12-12 13:48] LABS: BE (BASE EXCESS) -0.4 MEQ/L (0 +/- 2.5); CARBOXYHEMOGLOBIN 0.3 % (0-3); HCO3 (ACTUAL BICARBONATE) 24.8 MEQ/L (23-27); HEMOBLOGIN CONTENT 10.9 G/DL (12-16); INSTRUMENT SERIAL # 35151; O2 CONTENT 15.5 VOL% (18-24); PCO2 (CO2 TENSION) 43 MMHG (35-45); PO2 (O2 TENSION) 223 MMHG (79-93); SAMPLE Arterial; TIDAL VOLUME 500 ML; pH 7.38 (7.37-7.43)
[2016-12-12 17:59] LABS: HEMOGLOBIN 9.8 g/dL (12.0-16.0)
[2016-12-12 23:38] LABS: HEMATOCRIT 31.4 % (36.0-48.0)
[2016-12-13 03:43] LABS: BE (BASE EXCESS) -2.1 MEQ/L (0 +/- 2.5); CARBOXYHEMOGLOBIN 0.3 % (0-3); HCO3 (ACTUAL BICARBONATE) 22.5 MEQ/L (23-27); HEMOBLOGIN CONTENT 11.3 G/DL (12-16); INSTRUMENT SERIAL # 35151; METHEMOGLOBIN 0.7 % (0-3); MODE CMV; O2 CONTENT 15.4 VOL% (18-24); OPERATOR ID 13861; PCO2 (CO2 TENSION) 38 MMHG (35-45); PO2 (O2 TENSION) 97 MMHG (79-93); SAMPLE Arterial; TIDAL VOLUME 500 ML; pH 7.39 (7.37-7.43)
[2016-12-13 04:16] LABS: BASOPHILS 0 %; EOSINOPHILS 0 %; HEMATOCRIT 32.3 % (36.0-48.0); HEMOGLOBIN 10.3 g/dL (12.0-16.0); IMMATURE GRANULOCYTES 0.4 %; IMMATURE GRANULOCYTES ABSOLUTE 0.08 10/3/uL (0.0-0.11); LYMPHOCYTES 2.4 %; LYMPHOCYTES ABSOLUTE 0.47 10/3/uL (0.67-4.30); MEAN CORPUS HGB CONC 31.9 g/dL (32.0-36.0); MEAN PLATELET VOLUME 10.8 fL (9.2-13.0); MONOCYTES 2.5 %; MONOCYTES ABSOLUTE 0.48 10/3/uL (0.21-1.20); NEUTROPHILS 94.7 %; NEUTROPHILS ABSOLUTE 18.42 10/3/uL (2.02-8.40); PLATELET COUNT 217 10/3/uL (150-400); RBC DISTRIBUTION WIDTH 15.3 % (12.0-16.0); RED CELL COUNT 3.55 10/6/uL (4.0-5.6); WHITE BLOOD CELLS 19.5 10/3/uL (4.5-10.5)
[2016-12-13 04:17] LABS: MANUAL DIFF NO %
[2016-12-13 04:30] LABS: PHOSPHORUS, SERUM 3.5 MG/DL (2.5-4.5)
[2016-12-14 04:06] LABS: BASOPHILS 0 %; EOSINOPHILS 0 %; IMMATURE GRANULOCYTES 0.4 %; IMMATURE GRANULOCYTES ABSOLUTE 0.07 10/3/uL (0.0-0.11); LYMPHOCYTES 5.4 %; LYMPHOCYTES ABSOLUTE 0.85 10/3/uL (0.67-4.30); MEAN CORPUS HGB CONC 31.5 g/dL (32.0-36.0); MEAN CORPUSCULAR HEMOGLOB 29.1 pg (26.0-34.0); MEAN CORPUSCULAR VOLUME 92.6 fL (80-100); MEAN PLATELET VOLUME 11.7 fL (9.2-13.0); MONOCYTES 6.3 %; MONOCYTES ABSOLUTE 0.99 10/3/uL (0.21-1.20); NEUTROPHILS 87.9 %; NEUTROPHILS ABSOLUTE 13.76 10/3/uL (2.02-8.40); RED CELL COUNT 3.09 10/6/uL (4.0-5.6); WHITE BLOOD CELLS 15.7 10/3/uL (4.5-10.5)
[2016-12-14 04:07] LABS: HEMATOCRIT 28.6 % (36.0-48.0); MANUAL DIFF NO %; PLATELET COUNT 136 10/3/uL (150-400)
[2016-12-14 04:23] LABS: CALCIUM, SERUM 7.5 MG/DL (8.5-10.4); CHLORIDE, SERUM 108 MMOL/L (96-112); CO2 (CARBON DIOXIDE) 26 MMOL/L (24-34); CREATININE 1.65 MG/DL (0.55-1.02); GFR AFRICAN AMERICAN 34 ML/MIN (>=60); GFR NON AFRICAN AMERICAN 29 ML/MIN (>=60); PHOSPHORUS, SERUM 2.6 MG/DL (2.5-4.5); POTASSIUM, SERUM 3.9 MMOL/L (3.5-5.3); SODIUM, SERUM 144 MMOL/L (135-148)
[2016-12-14 04:30] LABS: BUN (BLOOD UREA NITROGEN) 34 MG/DL (6-23); GLUCOSE, SERUM 96 MG/DL (60-99)
[2016-12-15 04:56] LABS: BASOPHILS 0 %; EOSINOPHILS 0 %; HEMATOCRIT 26.9 % (36.0-48.0); HEMOGLOBIN 8.5 g/dL (12.0-16.0); IMMATURE GRANULOCYTES 0.6 %; IMMATURE GRANULOCYTES ABSOLUTE 0.07 10/3/uL (0.0-0.11); LYMPHOCYTES 5.5 %; LYMPHOCYTES ABSOLUTE 0.67 10/3/uL (0.67-4.30); MEAN CORPUS HGB CONC 31.6 g/dL (32.0-36.0); MEAN CORPUSCULAR HEMOGLOB 29.4 pg (26.0-34.0); MEAN CORPUSCULAR VOLUME 93.1 fL (80-100); MEAN PLATELET VOLUME 11.5 fL (9.2-13.0); MONOCYTES 5.2 %; MONOCYTES ABSOLUTE 0.63 10/3/uL (0.21-1.20); NEUTROPHILS 88.7 %; NEUTROPHILS ABSOLUTE 10.71 10/3/uL (2.02-8.40); PLATELET COUNT 113 10/3/uL (150-400); RED CELL COUNT 2.89 10/6/uL (4.0-5.6); WHITE BLOOD CELLS 12.1 10/3/uL (4.5-10.5)
[2016-12-15 05:00] LABS: MANUAL DIFF NO %
[2016-12-15 05:01] LABS: BUN (BLOOD UREA NITROGEN) 36 MG/DL (6-23); CALCIUM, SERUM 7.4 MG/DL (8.5-10.4); CHLORIDE, SERUM 112 MMOL/L (96-112); CO2 (CARBON DIOXIDE) 27 MMOL/L (24-34); CREATININE 1.79 MG/DL (0.55-1.02); GFR AFRICAN AMERICAN 30 ML/MIN (>=60); GFR NON AFRICAN AMERICAN 26 ML/MIN (>=60); GLUCOSE, SERUM 98 MG/DL (60-99); PHOSPHORUS, SERUM 2.7 MG/DL (2.5-4.5); POTASSIUM, SERUM 4.1 MMOL/L (3.5-5.3); SODIUM, SERUM 146 MMOL/L (135-148)
[2016-12-16 05:00] LABS: HEMATOCRIT 26.9 % (36.0-48.0); HEMOGLOBIN 8.4 g/dL (12.0-16.0); MEAN CORPUS HGB CONC 31.2 g/dL (32.0-36.0); MEAN CORPUSCULAR HEMOGLOB 29.1 pg (26.0-34.0); MEAN CORPUSCULAR VOLUME 93.1 fL (80-100); MEAN PLATELET VOLUME 12.3 fL (9.2-13.0); PLATELET COUNT 120 10/3/uL (150-400); RBC DISTRIBUTION WIDTH 16.1 % (12.0-16.0); RED CELL COUNT 2.89 10/6/uL (4.0-5.6); WHITE BLOOD CELLS 9.7 10/3/uL (4.5-10.5)
[2016-12-16 05:05] LABS: MANUAL DIFF YES %
[2016-12-16 05:12] LABS: BUN (BLOOD UREA NITROGEN) 35 MG/DL (6-23); CALCIUM, SERUM 7.7 MG/DL (8.5-10.4); CHLORIDE, SERUM 113 MMOL/L (96-112); CO2 (CARBON DIOXIDE) 24 MMOL/L (24-34); CREATININE 1.61 MG/DL (0.55-1.02); GFR AFRICAN AMERICAN 35 ML/MIN (>=60); GFR NON AFRICAN AMERICAN 30 ML/MIN (>=60); GLUCOSE, SERUM 114 MG/DL (60-99); POTASSIUM, SERUM 4.2 MMOL/L (3.5-5.3); SODIUM, SERUM 145 MMOL/L (135-148)
[2016-12-16 05:47] LABS: EOSINOPHILS 1 %; IMMATURE GRANS ABSOLUTE (CALC) 0.19 10/3/uL (0.0-0.11); LYMPHOCYTES 6 %; LYMPHOCYTES ABSOLUTE (CALC) 0.58 10/3/uL (0.67-4.30); METAMYELOCYTES 1 %; MONOCYTES 5 %; MONOCYTES ABSOLUTE (CALC) 0.49 10/3/uL (0.21-1.20); MYELOCYTES 1 %; NEUTROPHILS ABSOLUTE (CALC) 8.34 10/3/uL (2.02-8.40); SEGMENTED NEUTROPHIL (0) 86 %; TOTAL NUCLEATED CELLS 100
[2016-12-16 05:55] LABS: ANISOCYTOSIS 1+ (5-10/OIF) (0-5/OIF); PLATELET ESTIMATE SLT DEC (ADEQUATE); RBC MORPHOLOGY ABN (NORMAL)
[2016-12-18 07:06] LABS: HEMATOCRIT 28.2 % (36.0-48.0); HEMOGLOBIN 8.9 g/dL (12.0-16.0); MEAN CORPUS HGB CONC 31.6 g/dL (32.0-36.0); MEAN CORPUSCULAR HEMOGLOB 29.1 pg (26.0-34.0); MEAN CORPUSCULAR VOLUME 92.2 fL (80-100); MEAN PLATELET VOLUME 11.3 fL (9.2-13.0); NUCLEATED RED BLOOD CELLS 0.3 /100WBC (0-0); PLATELET COUNT 123 10/3/uL (150-400); RBC DISTRIBUTION WIDTH 15.6 % (12.0-16.0); RED CELL COUNT 3.06 10/6/uL (4.0-5.6); WHITE BLOOD CELLS 11.2 10/3/uL (4.5-10.5)
[2016-12-18 07:07] LABS: MANUAL DIFF YES %
[2016-12-18 07:44] LABS: BAND NEUTROPHILS 9 %; IMMATURE GRANS ABSOLUTE (CALC) 0.22 10/3/uL (0.0-0.11); LYMPHOCYTES 8 %; METAMYELOCYTES 2 %; MONOCYTES 7 %; MONOCYTES ABSOLUTE (CALC) 0.78 10/3/uL (0.21-1.20); PLATELET ESTIMATE SLT DEC (ADEQUATE); SEGMENTED NEUTROPHIL (0) 74 %; TOTAL NUCLEATED CELLS 100
[2016-12-18 07:45] LABS: HYPOCHROMIA 1+ (3-10/OIF) (0-2/OIF)
[2016-12-19 04:49] LABS: ALBUMIN 2.3 G/DL (3.5-5.0); CALCIUM, SERUM 7.8 MG/DL (8.5-10.4); CHLORIDE, SERUM 112 MMOL/L (96-112); CO2 (CARBON DIOXIDE) 26 MMOL/L (24-34); CREATININE 1.98 MG/DL (0.55-1.02); GFR AFRICAN AMERICAN 27 ML/MIN (>=60); GFR NON AFRICAN AMERICAN 23 ML/MIN (>=60); GLUCOSE, SERUM 112 MG/DL (60-99); PHOSPHORUS, SERUM 2.4 MG/DL (2.5-4.5); POTASSIUM, SERUM 3.9 MMOL/L (3.5-5.3); SODIUM, SERUM 147 MMOL/L (135-148)
[2016-12-19 04:51] LABS: BUN (BLOOD UREA NITROGEN) 40 MG/DL (6-23)
[2016-12-19] MEDS ORDERED: ANOROELLIPTA INH (09:31)
== END 2016-12-19 11:26 | disposition home or self-care (01) | DRG 208 ==
LOC: 2SO 21:54 → CCU 12-12 03:34 → 4SO 12-14 19:33
PROVIDERS: Hospitalist; Internal Medicine; Internal Medicine Critical Care Medicine
PROC: B54BZZA Ultrasonography of Right Lower Extremity Veins, Guidance (ICD-10-PCS; 2016-12-12)
PROC: 0B978ZX Drainage of Left Main Bronchus, Via Natural or Artificial Opening Endoscopic, Diagnostic (ICD-10-PCS; 2016-12-12)
PROC: B31T1ZZ Fluoroscopy of Left Pulmonary Artery using Low Osmolar Contrast (ICD-10-PCS; 2016-12-12)
PROC: 0BH17EZ Insertion of Endotracheal Airway into Trachea, Via Natural or Artificial Opening (ICD-10-PCS; principal; 2016-12-12 09:24)
PROC: 5A1945Z Respiratory Ventilation, 24-96 Consecutive Hours (ICD-10-PCS; 2016-12-12 09:24)
PROC: 06HM33Z Insertion of Infusion Device into Right Femoral Vein, Percutaneous Approach (ICD-10-PCS; 2016-12-12 09:24)
DX: J44.9 Chronic obstructive pulmonary disease, unspecified (principal); J96.01 Acute respiratory failure with hypoxia; R57.1 Hypovolemic shock; R04.2 Hemoptysis; N17.9 Acute kidney failure, unspecified; J98.11 Atelectasis; I49.5 Sick sinus syndrome; I48.0 Paroxysmal atrial fibrillation; N18.3 Chronic kidney disease, stage 3 (moderate); I12.9 Hypertensive chronic kidney disease with stage 1 through stage 4 chronic kidney disease, or unspecified chronic kidney disease; K21.9 Gastro-esophageal reflux disease without esophagitis; I25.10 Atherosclerotic heart disease of native coronary artery without angina pectoris; Z96.653 Presence of artificial knee joint, bilateral; I25.2 Old myocardial infarction; Z95.0 Presence of cardiac pacemaker; Z98.890 Other specified postprocedural states; Z88.0 Allergy status to penicillin; Z87.891 Personal history of nicotine dependence; Z88.2 Allergy status to sulfonamides; Z88.5 Allergy status to narcotic agent; Z91.040 Latex allergy status; Z91.048 Other nonmedicinal substance allergy status; Z79.82 Long term (current) use of aspirin; Z79.899 Other long term (current) drug therapy; E89.0 Postprocedural hypothyroidism; F41.9 Anxiety disorder, unspecified; R73.9 Hyperglycemia, unspecified; T38.0X5A Adverse effect of glucocorticoids and synthetic analogues, initial encounter
CPT/HCPCS: 31646; 31720; 36215; 36216; 36217; 36415; 36600; 71010; 71020; 71250; 74000; 75605; 75716; 75726; 75756; 80048; 80053; 80069; 81001; 82330; 82533; 82803; 82805; 82947; 82962; 83605; 83735; 83880; 84100; 84132; 84145; 84295; 84439; 84443; 84484; 85014; 85018; 85025; 85610; 85730; 86850; 86900; 86901; 86920; 87015; 87070; 87102; 87107; 87116; 87205; 87449; 87641; 88305; 93005; 93306; 94002; 94003; 94640; 94660; 94667; 94770; 97162-GP; 99285; A9270-GY; C1757; C1769; C1894; C9113; G0463; J0360; J0692; J2250; J2920; J3010; J3411; Q9967